=== PATIENT | female | born 1970 | race Two or more races ===

== ENCOUNTER 2018-11-26 12:21 | Emergency (ER) | payer OTHER ==
[~2018-11-26] VITALS: Ht 152.4 cm; Wt 50.8 kg
--- NOTE | 2018-11-26 12:21 | NUR ---
BIB SELF FOR VAGINAL BLEEDING AND ABDOMINAL PAIN AND BLOATING x 3 DAYS, TO ER BED 16, HOOKED TO MONITOR, AWAITING MD VIERA
[2018-11-26 12:57] LABS: BASOPHILS % (AUTO) 0.4 % (0.0-2.0); HEMATOCRIT 36 % (33-45); HEMOGLOBIN 11.8 g/dL (11.5-14.8); LYMPHOCYTES # (AUTO) 1.4 /CMM (0.8-4.8); LYMPHOCYTES % (AUTO) 13.2 % (20.0-44.0); MEAN CORPUSCULAR HGB CONC 33 g/dl (31.0-36.0); MEAN CORPUSCULAR VOLUME 78 fL (82-100); MONOCYTES # (AUTO) 0.4 /CMM (0.1-1.30); MONOCYTES % (AUTO) 3.6 % (2.0-12.0); NEUTROPHILS # (AUTO) 8.9 /CMM (1.8-8.9); NEUTROPHILS % (AUTO) 81.8 % (43.0-81.0); PLATELET COUNT (AUTO) 239 /CMM (150-450); RED BLOOD CELL COUNT(AUTO) 4.64 MIL/uL (4.0-5.2); WHITE BLOOD COUNT (AUTO) 10.9 K/uL (4.3-11.0)
--- NOTE | 2018-11-26 13:00 | NUR ---
DR SOSA AT BEDSIDE
--- NOTE | 2018-11-26 13:20 | NUR ---
DR SOSA AT BEDSIDE FOR PELVIC EXAM, SEBLE DAVIS AT BEDSIDE FOR INDEX EDITOR
--- NOTE | 2018-11-26 13:46 | NUR ---
CALLED DR PHILLIPS'S OFFICE TO REQUEST A DR TO
[2018-11-26] MEDS ORDERED: MEGESTROL ACETATE 40 MG TABLET PO STA (13:52)
[2018-11-26] MEDS ORDERED: KETOROLAC TROMETHAMINE INJ 30 MG/ML VIAL ONE (14:04)
--- NOTE | 2018-11-26 14:20 | NUR ---
CHEPERONING MALE US TECH FOR COMPLETE PELVIC ANDRE
[2018-11-26] MEDS ORDERED: KETOROLAC TROMETHAMINE INJ 30 MG/ML VIAL IV ONE (14:30)
--- NOTE | 2018-11-26 15:07 | NUR ---
IV removed. Catheter intact and site benign. Pressure and 4x4 applied to site. No bleeding noted.Patient discharged to home in stable condition. Written and verbal after care instructions given. Patient verbalizes understanding of instruction.
[2018-11-26 15:09] VITALS: BP 143/88
== END 2018-11-26 15:09 | disposition home or self-care (01) ==
LOC: ER 12:22
DX: N93.9 Abnormal uterine and vaginal bleeding, unspecified (principal)
CPT/HCPCS: 36415; 76856; 84702; 85025; 96374; 99284; A4606; A6402; J1885